=== PATIENT | female | born 1995 | race Hispanic/Latino ===

== ENCOUNTER 2018-11-01 19:40 | Emergency (ER) | payer OTHER ==
[~2018-11-01] VITALS: Ht 165.1 cm; Wt 96.2 kg
[2018-11-01] MEDS ORDERED: HYDROCODONE/APAP 5MG-325MG TAB PO ONE (20:45)
--- NOTE | 2018-11-01 21:28 | Diagnostic Imaging Report ---
EXAM: L SPINE 2-3 VEWS - [facility] DATE: 11/01/2018 12:00 AM INDICATION: Pain COMPARISON: None FINDINGS: Heights, disc spaces, and alignment satisfactory. No significant degenerative change. IMPRESSION: No acute findings. Signed by: Dr. Jensen Arias MD on 11/01/2018 9:25 PM
== END 2018-11-01 22:03 | disposition home or self-care (01) ==
LOC: FSED 19:40
DX: M54.5 Low back pain (principal); S39.012A Strain of muscle, fascia and tendon of lower back, initial encounter
CPT/HCPCS: 72100; 81025; 99283

== ENCOUNTER 2019-01-02 16:41 | Emergency (ER) | payer OTHER ==
[~2019-01-02] VITALS: Ht 165.1 cm; Wt 96.2 kg
--- OUTSIDE RECORDS SUMMARY | 2019-01-02 16:45 | XMS REPORT ---
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 Allergies, Adverse Reactions, Alerts This patient has no known allergies or adverse reactions. Medications This patient has no known medications. Results Test Description Test Time Test Comments Text Results Atomic Results Result Comments [facility] 2018-11-[facility] 21:24:00 [place] [id number] Patient Name: JO VERAS MR #: [id number] : 1995 Age/Sex: 23/F Req #: [id number] Adm Physician: Ordered by: GREGORIO GREENFIELD MD Report #: [id number] Location: [facility] Room/Bed: Procedure: [id number] [facility]/L SPINE 2-3 VEWS - [facility] Exam Date: 11/01/18 Exam Time: 2111 REPORT STATUS: Signed EXAM: [facility] DATE: 11/01/2018 12:00 AM INDICATION: Pain COMPARISON: None FINDINGS: Heights, disc spaces, and alignment satisfactory. No significant degenerative change. IMPRESSION: No acute findings. Signed by: Dr. Jensen Arias MD on 11/01/2018 9:25 PM Dictated By: JENSEN ARISA MD 24 Transcribed By: KEATON on 11/01/182124 COPY TO: GREGORIO GREENFIELD MD
== END 2019-01-02 17:34 | disposition home or self-care (01) ==
LOC: FSED 16:41
DX: R05 Cough (principal); B34.9 Viral infection, unspecified
CPT/HCPCS: 87400; 99283

== ENCOUNTER 2019-08-28 20:02 | Emergency (ER) | payer OTHER ==
[~2019-08-28] VITALS: Ht 165.1 cm; Wt 95.3 kg
[2019-08-28] MEDS ORDERED: BACTRIM DS TAB1 EACH PO (20:38)
== END 2019-08-28 20:55 | disposition home or self-care (01) ==
LOC: FSED 20:02
DX: L03.313 Cellulitis of chest wall (principal)
CPT/HCPCS: 99282